=== PATIENT | male | born 1945 | race Caucasian/White ===

== ENCOUNTER → 2024-07-04 | Outpatient (CLI) | payer MEDICARE, BC ==
[2024-07-04 12:19] LABS: Partial Thromboplastin Time 24.5 sec (22.0-30.0); Prothrombin Time 10.9 sec (10.0-12.5)
[2024-07-04 16:04] LABS: HGB 14.5 g/dL (13.0-17.0); MCH 30.3 pg (27.0-32.0); MCHC 34.5 g/dL (32.0-37.0); MCV 87.9 FL (80.0-97.0); Mean Platelet Volume 9.6 FL (9.5-12.2); NRBC Per 100 WBC 0 X 10*3/uL (0.00-0.01); Platelet Count 187 X 10*3/uL (140-440); RBC 4.78 X 10*6/uL (4.40-5.60); RDW 12.9 % (11.5-14.5); WBC 5.74 X 10*3/uL (4.50-10.00)
[2024-07-04 16:12] LABS: ALT 20 U/L (10-49); AST 25 U/L (14-35); Albumin 4.1 g/dL (3.8-4.9); Albumin/Globulin Ratio 1.46 Ratio (1.60-3.17); Alkaline Phosphatase 57 U/L (41-126); Blood Urea Nitrogen 24.1 mg/dL (9.0-27.0); Calcium 9.1 mg/dL (8.7-10.3); Carbon Dioxide 24.2 mmol/L (21.6-31.8); Chloride 103 mmol/L (96-109); Globulin 2.8 g/dL (1.6-3.3); Glucose 117 mg/dL (70-110); Potassium 4.4 mmol/L (3.5-5.5); Sodium 138 mmol/L (135-145); Total Bilirubin 0.5 mg/dL (0.3-1.2); Total Protein 6.9 g/dL (6.2-8.2)
== END | disposition home or self-care (01) ==
LOC: LABPAT 11:12
PROVIDERS: ATTEND Orthopaedic Surgery
DX: Z01.818 Encounter for other preprocedural examination (principal); Z22.322 Carrier or suspected carrier of Methicillin resistant Staphylococcus aureus; M16.12 Unilateral primary osteoarthritis, left hip
CPT/HCPCS: 80053; 85027; 85610; 85730; 86850; 86900; 86901; 87070

== ENCOUNTER 2024-07-16 11:25 | Day surgery (SDC) | payer MEDICARE, BC ==
[2024-07-16] MEDS ORDERED: HYDROmorphone 0.5 MG/0.5 ML SYRINGE IVP PRN ×4 (12:02→13:27)
[2024-07-16] MEDS ORDERED: fentaNYL (PF) 50 MCG/ML 2 ML AMP IVP PRN (12:02)
[2024-07-16] MEDS ORDERED: LIDOCAINE 1% (10MG/ML) FOR IV START INTRADERMA PRN (12:02)
[2024-07-16] MEDS: MIDAZOLAM 2 MG/2 ML VIAL IV PRN (12:22)
--- NOTE | 2024-07-16 12:32 | P.ANPRN ---
Procedure Note - Anesthesia - Nerve Block Performed Left Hussain Single Time Out Performed: Yes Date of Procedure: 07/16/24 Procedure Start Time: Procedure Stop Time: Location of Patient: PreOp Indication: Acute Post-Operative Pain, Analgesia, Requested by Surgeon Sedation Type: Sedate with meaningful contact maintained Preparation: Sterile Prep Position: Supine Catheter: None Needle Types: Pajunk Needle Gauge: 21 Ultrasound used to visualize needle placement: Yes Ultrasound used to observe medication spread: Yes Injectate: 0.5% Ropivacaine (see comment for volume) ([id number]) Blood Aspirated: No Pain Paresthesia on Injection Noted: No Resistance on Injection: Normal Image Stored and Saved: Yes Events: Uneventful and Well Tolerated
[2024-07-16] MEDS: IV FLUID CONTINUATION 1,000 ML IV ONE (12:35)
[2024-07-16] MEDS: DEXAMETHASONE SOD PHOSPHATE 4 MG/ML 1 ML VIAL IV ONE (12:36)
[2024-07-16] MEDS: LACTATED RINGERS 1,000 ML IV SCH (12:36)
[2024-07-16] MEDS: ONDANSETRON 4 MG/2 ML VIAL IVP ONE (12:36)
[2024-07-16] MEDS: ACETAMINOPHEN TAB 500 MG TAB PO STA (12:41)
[2024-07-16] MEDS: GABAPENTIN 300 MG CAP PO STA (12:45)
[2024-07-16] MEDS ORDERED: TRANEXAMIC 1,000 MG/100ML-NACL PREMIX BAG ONE (13:13)
[2024-07-16] MEDS ORDERED: ePHEDrine 50 MG/ML 1 ML VIAL ONE (13:13)
[2024-07-16] MEDS ORDERED: MIDAZOLAM 2 MG/2 ML VIAL ONE (13:13)
[2024-07-16] MEDS ORDERED: ROPIVACAINE 5 MG/ML 30 ML VIAL ONE (13:13)
[2024-07-16] MEDS ORDERED: PROPOFOL 10 MG/ML 20 ML VIAL IV ONE (13:13)
[2024-07-16] MEDS ORDERED: DEXAMETHASONE SOD PHOSPHATE 4 MG/ML 1 ML VIAL ONE (13:13)
[2024-07-16] MEDS: ceFAZolin 1,000 MG in SODIUM CHLORIDE 0.9% 1,000 ML IRRIGATION ONE (13:18)
[2024-07-16] MEDS ORDERED: MAGNESIUM HYDROXIDE 2,400 MG/30 ML CUP PO PRN (13:27)
[2024-07-16] MEDS ORDERED: ONDANSETRON 4 MG/2 ML VIAL IVP PRN (13:27)
[2024-07-16] MEDS ORDERED: NALOXONE 0.4 MG/ML 1 ML VIAL IV PRN (13:27)
[2024-07-16] MEDS ORDERED: HYDROcodone/APAP 7.5-325MG 1 EACH TAB PO PRN (13:28)
[2024-07-16] MEDS: ROPIVACAINE 5 MG/ML 30 ML VIAL MISCELLANE ONE ×2 (13:45→14:23)
--- NOTE | 2024-07-16 14:30 | P.OP ---
Date of Procedure: 07/16/24 Preoperative Diagnosis: Severe osteoarthritis left hip Postoperative Diagnosis: Severe osteoarthritis left hip Procedure(s) Performed: Left total hip arthroplasty with a direct anterior approach Implants: [employer] Polarstem standard size 2 with a collar [employer] R3, 3 hole hemispherical acetabular shell, 56 mm [employer] Reflection 6.5 mm cancellus screws, 20 mm 2 [employer] R3, XLPE 20 acetabular liner [employer]hew Oxinium femoral head 36 mm, -3 All components were press-fit. The articulation is Oxinium on polyethylene. Anesthesia: spinal Surgeon: Kory Rowe Merchandise Appraiser #1: Kerrie Perez Estimated Blood Loss (ml): 200 Pathology: none sent Condition: stable Disposition: PACU Indications for Procedure: After failure of conservative treatment we discussed the surgical and nonsurg ical treatment options at length. Patient wishes to proceed with a total hip arthroplasty with a direct anterior approach. Complications specific to this procedure were discussed at length, including but not limited to infection, leg length discrepancy, dislocation, nerve injury, and fracture. Covid-19 was also discussed at length with the patient, and they are aware of the current policies and procedures. The patient was given the option of delaying surgery, but they elect to proceed knowing these risks. Patient is aware of all these complications and informed consent was obtained Operative Findings: The operative findings are consistent with severe osteoarthritis of the left hip Description of Procedure: The patient was seen and evaluated in the preoperative area and the consent was reviewed. The operative site was marked with a skin marker. The patient verified the procedure and operative site. A STIVEN block was placed by anesthesia in the preoperative area. The patient was then brought to the operating room and given preoperative antibiotics intravenously. 1 g of Tranexamic acid was also given intravenously. A spinal anesthetic was administered by the anesthesia department. The patient was then placed on the [place] table with the bony prominences well-padded. The hip area was then prepped with a ChloraPrep solution and draped in the usual sterile fashion. A universal timeout was then performed, which confirmed the patient's name, surgical site, ALLERGIES, and procedure being performed on the consent. Next the incision site was located at 1 cm distal and 4 cm lateral to the anterior superior iliac spine. The skin and subcutaneous tissues were sharply incised. Incision was carefully dissected down to the fascia overlying the tensor fascia faustina muscle. This fascia was then incised in line with the muscle fibers. Care was taken to stay laterally in order to avoid injuring the lateral femoral c utaneous nerve. Next, using blunt finger dissection, the tensor fascia faustina muscle was dissected off its investing fascia. The muscle was then carefully retracted laterally with a cobra retractor over the lateral neck of the femur. Next, the circumflex vessels were identified and cauterized using the Aquamantis device. The anterior hip capsule was then exposed. The capsule was then opened and an inverted T fashion. The retractors were then placed intracapsularly. The retractors were maintained intracapsular throughout the procedure. The proximal femur was then visualized. Fluoroscopic x-rays were then taken in order to evaluate the preoperative leg lengths. A small amount of traction was placed on the leg. The femoral neck was then osteotomized at the appropriate level above the lesser trochanter. A small wedge of bone was then removed from the remaining femoral head. Next, using a corkscrew the femoral head was removed from the acetabulum. On gross visual inspection, the femoral head had complete loss of articular cartilage and multiple periarticular osteophytes. The femoral head was then measured. Attention was then turned to the acetabulum. The acetabulum was exposed and any remaining labrum was excised. Sequential reaming of the acetabulum was performed using fluoroscopic guidance until there was a good bed of bleeding cancellus bone. When the appropriate size was reached, a trial was then placed. The position and fit of the trial was checked with fluoroscopy. The trial was then removed. Then, using fluoroscopic guidance, the final implant was impacted at 20 of anteversion and 40 of abduction, and fully seated in the acetabulum. 2 screws were then placed in the acetabulum. Again fluoroscopy was used to check position of the screws. Next, the liner was then impacted, with a 20 elevated liner located in the anterior superior quadrant. Component locking was confirmed. Attention was then directed to the femur. With the aid of the [place] table, the femur was externally rotated to approximately 130, extended, and adducted under the opposite leg. A side hook was then placed under the proximal femur, and the side hook elevator was used to elevate the proximal femur while releasing the capsule. Retractors were then placed. A capsular release was performed, as well as a release of the conjoined tendon, which afforded excellent visu alization of the proximal femur. Next, a box osteotome was used to lateralize the proximal femur. A hand coper was then used to locate the femoral canal. Sequential broaching was then performed with appropriate size which afforded excellent fixation in the proximal femur. A trial was then placed with appropriate head and neck, and the hip was gently reduced with the aid of the [place] table. Fluoroscopy was then used to check position of the components, as well as to evaluate the leg lengths and offset. The leg lengths and offset were measured as closely as possible to ensure stability of the hip. The hip was then gently dislocated and the trials were then removed. Final implants were then impacted and the hip was again reduced. Final fluoroscopic x-rays confirmed that the components were in anatomic position. The leg lengths and offset were measured and were found to coincide with the trial measurements. The hip was also taken through range of motion, and found to be stable. The hip was then copiously irrigated with antibiotic solution with pulsatile lavage. The hip was then irrigated with Irrisept solution. The soft tissues were then injected with a ropivacaine solution. A second dose of 1 g of Tranexamic acid was also given intravenously. The fascia was then closed with 2-0 strata fix suture. The subcutaneous tissue was closed with 3-0 Vicryl. The subcuticular tissue was closed with 3-0 moncryl suture. The skin was then closed with Exofin skin glue. After the glue and dried, and Optifoam silver impregnated dressing was applied. The patient was then transferred to the recovery room in stable condition. The planning assistant DARNELL Weeks was required due to the complexity of surgery, and the need for skilled ophthalmology surgical technician for positioning, draping, exposure, retraction, and closure of the wound.
--- NOTE | 2024-07-16 15:26 | XR ---
Fluoroscopy History: LEFT ANTERIOR HIP LT ANTERIOR HIP. 30 SECS FL 2.088 [facility], , 07/16/2024 3:23 PM
--- NOTE | 2024-07-16 15:36 | XR ---
EXAMINATION TYPE: XR Hip Limited LT DATE OF EXAM: 07/16/2024 3:26 PM COMPARISON: None. CLINICAL INDICATION: Male, 79 years old with history of Status post hip surgery, assess surgical thania saini, Postoperative evaluation TECHNIQUE: XR Hip Limited LT views were obtained FINDINGS: Noted are changes of total hip arthroplasty with femoral and acetabular components appearing well sea michael. Alignment is anatomic. Postsurgical soft tissue changes are evident. IMPRESSION: Satisfactory postoperative alignment [facility], , 07/16/2024 3:34 PM
[2024-07-16] MEDS: TRANEXAMIC ACID 1,000 MG in SODIUM CHLORIDE 0.9% 100 ML IRRIGATION SCH (18:08)
--- NOTE | 2024-07-16 18:42 | P.CONS ---
History of Present Illness - Reason for Consult Consult date: 07/16/24 - Chief Complaint Medical management - History of Present Illness 79-year-old male with history of hypertension, hypothyroidism evaluation of left total hip arthroplasty. Medicine was consulted for medical management. Patient has no complaints at this time. Insertable alcoholic he has no complaints of pain. Patient is eating and drinking well. Passing flatus. Patient is hemodynamically stable. No labs for review. Hip x-rays show satisfactory postoperative alignment. All Systems reviewed and pertinent positives and negatives noted in HPI, all other symptoms are negative Gen: In NAD, non-toxic HEENT: normocephalic, atraumatic, hearing acuity is intant, mucous membranes moist CVS: perfusing all extremities well, no pitting edema, Respiratory: symmetric chest expansion, no accessory muscle use, GI: soft, NTTP, ND, : no suprapubic tenderness, no CVA tenderness MSK/Derm: no rashes, cyanosis Neuro: CN II-XII intact, no motor weakness, Psych: cooperative, euthymic mood, judgment and insight is intact Assessment/plan: Hypertension -Resume patient's bisoprolol component of his Ziac, hold his hydrochlorothiazide component -Basic metabolic panel in the morning, magnesium in the morning Hypothyroidism -Resume patient's Synthroid Status post left hip arthroplasty -DVT prophylaxis and pain control per primary team Patient is full code Past Medical History Past Medical History: Hypertension, Osteoarthritis (OA), Thyroid Disorder Additional Past Medical History / Comment(s): skin cancer - removed. left hip and back pain. History of Any Multi-Drug Resistant Organisms: None Reported Past Surgical History: Tonsillectomy Additional Past Surgical History / Comment(s): rt CTR, left hand pointer finger surgery. colonoscopy Past Anesthesia/Blood Transfusion Reactions: No Reported Reaction Past Psychological History: No Psychological Hx Reported Smoking Status: Never smoker Past Alcohol Use History: Occasional Past Drug Use History: None Reported - Past Family History Mother Family Medical History: Coronary Artery Disease (CAD) Father Family Medical History: Coronary Artery Disease (CAD) Sister(s) Family Medical History: Cancer Brother(s) Family Medical History: Coronary Artery Disease (CAD) Medications and Allergies Home Medications Medication Instructions Recorded Confirmed Type Aspirin 81 mg PO DAILY 07/12/24 07/12/24 History Bisoprolol-Hctz 5-6.25 mg [Ziac 1 tab PO DAILY 07/12/24 07/16/24 History 5-6.25 MG] Levothyroxine Sodium [Synthroid] 175 mcg PO DAILY 07/12/24 07/16/24 History Unk Krill Oil 1 tab PO DAILY 07/12/24 07/12/24 History Unk Magnesium 1 tab PO DAILY 07/12/24 07/12/24 History Unk Motrin 1 tab PO DIRECTED PRN 07/12/24 07/12/24 History Unk Multi Vitamin 1 tab PO DAILY 07/12/24 07/12/24 History Unk Vitamin E 1 tab PO DAILY 07/12/24 07/12/24 History Aspirin 325 mg PO BID #60 tab 07/16/24 Rx HYDROcodone/APAP 7.5-325MG [[place] 1 - 2 tab PO Q6H PRN #32 tab 07/16/24 Rx 7.5-325] Sennosides [Senokot] 2 tab PO DAILY PRN #60 tablet 07/16/24 Rx Allergies Allergy/AdvReac Type Severity Reaction Status Date / Time No Known Allergies Allergy Verified 07/12/24 14:25 Physical Exam Osteopathic Statement: *. No significant issues noted on an osteopathic struc tural exam other than those noted in the History and Physical/Consult. Vitals: Vital Signs Temp Pulse Resp BP Pulse Ox 07/16/24 17:45 52 L 132/72 98 07/16/24 17:30 50 L 134/72 99 07/16/24 17:15 53 L 131/63 07/16/24 17:00 53 L 129/57 100 07/16/24 16:45 51 L 125/63 07/16/24 16:30 47 L 147/73 100 07/16/24 16:00 46 L 118/56 97 07/16/24 15:45 47 L 18 135/61 99 07/16/24 15:26 51 L 16 143/65 98 07/16/24 15:10 97.0 F L 41 L 16 111/55 98 07/16/24 12:50 45 L 15 156/80 98 07/16/24 12:32 45 L 16 161/70 99 07/16/24 12:13 97.5 F L 50 L 16 194/84 99 Intake and Output 12/07/16/24 07/16/24 06:59 14:59 22:59 Intake Total 551 Output Total 200 Balance 351 Intake: IV 551 Output: Estimated Blood Loss 200 Other: Weight 87.4 kg 87.4 kg
[2024-07-16] MEDS: ASPIRIN 325 MG TAB PO SCH (20:44)
[2024-07-16] MEDS: SENNOSIDES-DOCUSATE SODIUM 1 EACH TAB PO SCH (20:44)
[2024-07-16] MEDS: SODIUM CHLORIDE 0.9% 1,000 ML IV SCH (20:46)
[2024-07-17] MEDS: HYDROcodone/APAP 7.5-325MG 1 EACH TAB PO PRN (01:31)
[2024-07-17] MEDS: LEVOTHYROXINE 88 MCG TAB PO SCH (06:13)
--- NOTE | 2024-07-17 07:56 | P.DS ---
Providers Expected date of discharge: 07/17/24 Attending physician: Kory Rowe Consults: 07/16/24 13:27 Consult Physician Routine Consulting Provider: Nighat Larose Consult Reason/Comments: medical management Do you want consulting provider notified?: Yes Primary care physician: Andrew Delatorre, DO - Discharge Diagnosis(es) (1) Osteoarthritis of left hip Current Visit: Yes Status: Acute (2) S/P total hip arthroplasty Current Visit: Yes Status: Acute Hospital Course: This is a 79-year-old male with known history of degenerative arthritis of the left hip. The patient presented for evaluation as an outpatient. After discussion and consideration patient elects to proceed with total hip arthroplasty. The patient is seen preoperatively by Dr. Rowe and medically cleared for surgery by their primary care physician. Patient is admitted to [facility] on 07/16/2024 for total hip arthroplasty. The procedure is performed without complication or sequelae. The patient is doing well postoperatively. Labs and vital signs are stable on day of discharge. On day of discharge patient's hip incision is healing well. There is minimal erythema. There is no drainage noted at this time. There is minimal soft tissue swelling to the hip and thigh. Patient has full foot and ankle motion without difficulty or pain. Calf is soft and nontender to palpation. Neurovascular status to the left lower extremity is intact. Patient is discharged home in good condition. Please see med rec for accurate list of home medications. Plan - Discharge Summary Discharge Rx Participant: Yes New Discharge Prescriptions: New HYDROcodone/APAP 7.5-325MG [[place] 7.5-325] 1 - 2 tab PO Q6H PRN #32 tab PRN Reason: Pain Sennosides [Senokot] 2 tab PO DAILY PRN #60 tablet PRN Reason: Constipation Aspirin 325 mg PO BID #60 tab No Action Bisoprolol-Hctz 5-6.25 mg [Ziac 5-6.25 MG] 1 tab PO DAILY Unk Vitamin E 1 tab PO DAILY Unk Multi Vitamin 1 tab PO DAILY Unk Motrin 1 tab PO DIRECTED PRN PRN Reason: Pain Unk Magnesium 1 tab PO DAILY Unk Krill Oil 1 tab PO DAILY Levothyroxine Sodium [Synthroid] 175 mcg PO DAILY Aspirin 81 mg PO DAILY Discharge Medication List Aspirin 81 mg PO DAILY 07/12/24 [History] Bisoprolol-Hctz 5-6.25 mg [Ziac 5-6.25 MG] 1 tab PO DAILY 07/12/24 [History] Levothyroxine Sodium [Synthroid] 175 mcg PO DAILY 07/12/24 [History] Unk Krill Oil 1 tab PO DAILY 07/12/24 [History] Unk Magnesium 1 tab PO DAILY 07/12/24 [History] Unk Motrin 1 tab PO DIRECTED PRN 07/12/24 [History] Unk Multi Vitamin 1 tab PO DAILY 07/12/24 [History] Unk Vitamin E 1 tab PO DAILY 07/12/24 [History] Aspirin 325 mg PO BID #60 tab 07/16/24 [Rx] HYDROcodone/APAP 7.5-325MG [[place] 7.5-325] 1 - 2 tab PO Q6H PRN #32 tab 07/16/24 [Rx] Sennosides [Senokot] 2 tab PO DAILY PRN #60 tablet 07/16/24 [Rx] Follow up Appointment(s)/Referral(s): Kory Rowe DO [Doctor of Osteopathic Medicine] - 2 Weeks Activity/Diet/Wound Care/Special Instructions: Weightbearing as tolerated with walker. Leave dressing intact. Dressing may be removed by home care nurse or by patient in 7 days. Then change dressing twice daily until follow up. May shower with initial dressing intact and after removal. If dressing become saturated, please remove. Please take aspirin 325mg twice daily for 30 days to prevent blood clots. Recommend use of compression stockings daily until follow up to help prevent swelling and blood clots. May remove at night before sleeping. [facility] follow[facility]up with [facility] weeks and call with any questions or concerns, . Discharge Disposition: HOME WITH HOME HEALTH SERVICES
[2024-07-17 08:38] VITALS: BP 146/72; PULSE 64; RESP 15; TEMP 97.5
[2024-07-17 08:53] LABS: Basophils # (A) 0.01 X 10*3/uL (0.00-0.10); Basophils % (A) 0.1 %; Eosinophils # (A) 0 X 10*3/uL (0.04-0.35); Eosinophils % (A) 0 %; HCT 36.8 % (39.6-50.0); HGB 12.5 g/dL (13.0-17.0); Lymphocytes # (A) 1.25 X 10*3/uL (0.90-5.00); Lymphocytes % (A) 9.5 %; MCH 30.3 pg (27.0-32.0); MCV 89.1 FL (80.0-97.0); Mean Platelet Volume 9.6 FL (9.5-12.2); Monocytes # (A) 1.29 X 10*3/uL (0.20-1.00); Monocytes % (A) 9.8 %; NRBC Per 100 WBC 0 X 10*3/uL (0.00-0.01); Neutrophils # (A) 10.49 X 10*3/uL (1.80-7.70); Neutrophils % (A) 80.1 %; Platelet Count 180 X 10*3/uL (140-440); RBC 4.13 X 10*6/uL (4.40-5.60); RDW 12.9 % (11.5-14.5)
[2024-07-17] MEDS ORDERED: BISOPROLOL-HCTZ 5-6.25 MG 1 EACH TAB PO SCH (09:00)
[2024-07-17] MEDS: BISOPROLOL 5 MG TAB PO SCH (09:07)
[2024-07-17 09:14] LABS: BUN/Creat Ratio 20.11 Ratio (12.00-20.00); Blood Urea Nitrogen 18.1 mg/dL (9.0-27.0); Calcium 8.6 mg/dL (8.7-10.3); Carbon Dioxide 21.4 mmol/L (21.6-31.8); Chloride 103 mmol/L (96-109); Glucose 157 mg/dL (70-110); Magnesium 1.9 mg/dL (1.5-2.4); Potassium 4.2 mmol/L (3.5-5.5); Sodium 137 mmol/L (135-145)
--- NOTE | 2024-07-17 13:50 | P.PN ---
Subjective Progress Note Date: 07/17/24 Subjective: Patient seen and examined at bedside. No acute events overnight. Pertinent positives and negatives as discussed above, a complete review of systems was performed and all other systems are negative. Vitals Signs Reviewed. General: Nontoxic, no distress, appears at stated age Derm: Warm, dry, dressing clean, dry, intact Head: Atraumatic, normocephalic, symmetric Eyes: EOMI, no lid lag, anicteric sclera Mouth: No lip lesion, mucus membranes moist Cardiovascular: S1S2 reg, no murmur Lungs: CTA bilateral, no rhonchi, no rales, no accessory muscle use Abdominal: Soft, nontender to palpation, no guarding, no appreciable organomegaly Ext: No gross muscle atrophy, no edema, no contractures Neuro: CN II-XI grossly intact, no focal neuro deficits Psych: Alert, oriented, appropriate affect Data Reviewed Today: Pertinent Labs: WBC 13.1, hemoglobin 12.5, creatinine 0.9, magnesium 1.9 Imaging: No new imaging Assessment and Plan: Active: Status post left hip arthroplasty -DVT prophylaxis and bowel regimen per primary service Hypertension -Continue bisoprolol 5, hydrochlorothiazide 6.25 Hypothyroidism -Continue 175 mcg daily Patient is medically optimized for discharge Thank you for allowing us to participate in the care of this pleasant patient. Do not hesitate to contact us with questions. Someone can be reached from the [facility] hospitalist group all hours of the day at [phone] or via [employer]. Objective - Vital Signs Vital signs: Vital Signs Temp 97.5 F L 07/17/24 07:14 Pulse 64 07/17/24 07:14 Resp 15 07/17/24 07:14 BP 146/72 07/17/24 07:14 Pulse Ox 97 07/17/24 07:14 FiO2 Intake & Output 07/16/24 07/17/24 07/17/24 18:59 06:59 18:59 Intake Total 551 Output Total 200 Balance 351 Weight 87.4 kg Intake: IV 551 Output: Estimated Blood Loss 200 Other: Voiding Method Toilet # Voids 5 - Labs CBC & Chem 7: 07/17/24 03:47 07/17/24 03:47 Labs: Abnormal Lab Results - Last 24 Hours (Table) 07/17/24 07/17/24 Range/Units 03:47 03:47 WBC 13.10 H (4.50-10.00) X 10*3/uL RBC 4.13 L (4.40-5.60) X 10*6/uL Hgb 12.5 L (13.0-17.0) g/dL Hct 36.8 L (39.6-50.0) % Immature Gran # 0.06 H (0.00-0.04) X 10*3/uL Neutrophils # 10.49 H (1.80-7.70) X 10*3/uL Monocytes # 1.29 H (0.20-1.00) X 10*3/uL Eosinophils # 0 L (0.04-0.35) X 10*3/uL Carbon Dioxide 21.4 L (21.6-31.8) mmol/L Anion Gap 12.60 H (4.00-12.00) mmol/L BUN/Creatinine Ratio 20.11 H (12.00-20.00) Ratio Glucose 157 H (70-110) mg/dL Calcium 8.6 L (8.7-10.3) mg/dL
== END 2024-07-17 11:15 | disposition home health service (06) ==
LOC: OR 11:25 → 4SSUR 14:43 → OR 07-17 11:15
PROVIDERS: ATTEND Orthopaedic Surgery
DX: M16.0 Bilateral primary osteoarthritis of hip (principal); G89.18 Other acute postprocedural pain; I10 Essential (primary) hypertension; E78.5 Hyperlipidemia, unspecified; E89.0 Postprocedural hypothyroidism; Z79.82 Long term (current) use of aspirin; Z79.890 Hormone replacement therapy; Z79.899 Other long term (current) drug therapy
CPT/HCPCS: 27130; 97161; 97166; 64999; 80048; 83735; 85025; 73501; C1776; J2250; J1100; J0690 ×3; J2405; J2795